=== PATIENT | female | born 1955 | race Caucasian/White ===

== ENCOUNTER 2022-07-06 17:50 | Emergency (ER) | payer OTHER ==
[~2022-07-06] VITALS: Ht 157.5 cm; Wt 53.1 kg
[2022-07-06 19:22] LABS: Source, Urine Clean Catch
[2022-07-06 19:31] LABS: Appearance, Urine Clear (Clear); Bilirubin, Urine Neg (Neg); Blood, Urine 1+ (Neg); Color, Urine Yellow (P-Yellow); Glucose Qualitative, Urine Neg (Neg); Ketones, Urine Neg (Neg); Leukocyte Esterase, Urine Neg (Neg); Nitrite, Urine Neg (Neg); Protein, Urine Neg (Neg); Specific Gravity, Urine 1.005 (1.003-1.022); Urobilinogen, Urine NORM (Normal)
[2022-07-06 19:44] LABS: Red Blood Cells, Urine 0-2 /hpf (0-2); White Blood Cells, Urine 0-2 /hpf (0-5)
[2022-07-06 19:45] LABS: Bacteria Rare /hpf; Squamous Epithelial Cells Rare /hpf (Few)
== END 2022-07-06 20:31 | disposition left against medical advice (07) ==
LOC: ER 17:50
PROVIDERS: Student in an Organized Health Care Education/Training Program
DX: F41.9 Anxiety disorder, unspecified (principal); Z53.21 Procedure and treatment not carried out due to patient leaving prior to being seen by health care provider
CPT/HCPCS: 81001; 93005; 93010

== ENCOUNTER → 2022-10-12 | Outpatient (CLI) | payer MEDICARE, OTHER | LOC: LAB 19:37 → LAB SHORT 19:37 | DX: N39.0 Urinary tract infection, site not specified (principal) | CPT/HCPCS: 87086 ==

== ENCOUNTER 2022-11-12 13:55 | Emergency (ER) | payer MEDICARE, OTHER ==
[~2022-11-12] VITALS: Ht 157.5 cm; Wt 54.4 kg
[~2022-11-12 13:55] MED LIST: Atarax10 MG PO; CARB200 PO; CYMBALTA20 M2 PO; Cyclobenzaprine5 MG PO; GABA300 PO; Imitrex100 MG PO; LEVOTHYROXINE100 M10 PO; SUBOXONE 8 MG-1 EACH SL
[2022-11-12 15:40] VITALS: BP 137/75
== END 2022-11-12 15:41 | disposition home or self-care (01) ==
LOC: ER 13:55
DX: S90.811D Abrasion, right foot, subsequent encounter (principal); Z47.89 Encounter for other orthopedic aftercare; F17.200 Nicotine dependence, unspecified, uncomplicated; Z88.8 Allergy status to other drugs, medicaments and biological substances; X58.XXXD Exposure to other specified factors, subsequent encounter
CPT/HCPCS: 29705; 99282-25

== ENCOUNTER 2024-01-05 17:10 | Emergency (ER) | payer MEDICARE, OTHER ==
[~2024-01-05] VITALS: Ht 157.5 cm; Wt 59.0 kg
[~2024-01-05 17:10] MED LIST changes: +Percocet 5-3251 EACH PO
[2024-01-05 17:24] VITALS: BP 117/83
[2024-01-05] MEDS ORDERED: Ibuprofen 600 MG Tab PO ONE (17:30)
[2024-01-05] MEDS ORDERED: SUMAtriptan succinate 50 MG Tab PO ONE (18:30)
== END 2024-01-05 18:45 | disposition home or self-care (01) ==
LOC: ER 17:10
DX: S90.32XA Contusion of left foot, initial encounter (principal); W18.2XXA Fall in (into) shower or empty bathtub, initial encounter; Z88.8 Allergy status to other drugs, medicaments and biological substances; Z79.899 Other long term (current) drug therapy; I50.9 Heart failure, unspecified; G43.909 Migraine, unspecified, not intractable, without status migrainosus; E03.9 Hypothyroidism, unspecified
CPT/HCPCS: 73630; 99283-25; A9270

== ENCOUNTER 2024-07-06 00:55 | Inpatient (IN) | payer MEDICARE, OTHER ==
[~2024-07-06] VITALS: Ht 157.5 cm; Wt 64.1 kg
[2024-07-06] MEDS ORDERED: NS 1,000 ML IV SCH ×2 (01:30→04:00)
[2024-07-06] MEDS ORDERED: Acetaminophen 500 MG Tab PO ONE (01:30)
[2024-07-06] MEDS ORDERED: Famotidine 20 MG Tab PO ONE (01:30)
[2024-07-06 01:34] LABS: CORONAVIRUS COVID-19 AG Negative (NEGATIVE); INFLUENZA A AG Positive (NEGATIVE); INFLUENZA B AG Negative (NEGATIVE)
[2024-07-06 01:41] LABS: BASOPHILS ABSOLUTE AUTO 0.01 K/mm3 (0.00-0.23); BASOPHILS PERCENT AUTO 0 % (0-2); EOSINOPHILS PERCENT AUTO 0 % (0-6); Hematocrit 46.9 % (33.0-51.0); IMMATURE GRAN ABSOLUTE AUTO 0.01 K/mm3 (0.00-0.10); IMMATURE GRAN PERCENT AUTO 0 % (0-1); LYMPHOCYTES ABSOLUTE AUTO 0.58 K/mm3 (0.84-5.20); LYMPHOCYTES PERCENT AUTO 19 % (21-46); MONOCYTES ABSOLUTE AUTO 0.42 K/mm3 (0.16-1.47); MONOCYTES PERCENT AUTO 14 % (4-13); Mean Corpuscular HGB 32.5 pg (26.0-34.0); Mean Corpuscular HGB Conc 34.1 g/dL (31.5-36.5); Mean Corpuscular Volume 95 fL (80-100); Mean Platelet Volume 10.7 fL (9.1-12.4); NEUTROPHILS ABSOLUTE AUTO 2.02 K/mm3 (1.96-9.15); NEUTROPHILS PERCENT AUTO 67 % (41-73); Platelet Count 80 K/mm3 (150-400); RDW Coefficient Variation 11.7 % (11.7-14.2); Red Blood Cell Count 4.93 M/mm3 (3.80-5.20); White Blood Cell Count 3.04 K/mm3 (4.00-11.30)
[2024-07-06 01:50] LABS: Albumin, Blood 3.7 g/dL (3.4-5.0); Albumin/Globulin Ratio 0.9 (0.8-1.8); Bilirubin, Total 0.5 mg/dL (0.1-1.0); Bun/Creatinine Ratio 18.3 (12.0-20.0); Creatinine, Blood 0.6 mg/dL (0.40-1.00); Globulin, Blood 3.9 g/dL (2.2-4.0); Magnesium, Blood 1.9 mg/dL (1.6-2.4); Potassium, Blood 3.4 mmol/L (3.5-5.5); Total Protein, Blood 7.6 g/dL (6.4-8.2)
[2024-07-06] MEDS ORDERED: Oseltamivir Phosphate 75 MG Cap PO ONE (01:50)
[2024-07-06] MEDS ORDERED: Zolpidem Tartrate 5 MG Tab PO PRN (03:10)
[2024-07-06] MEDS ORDERED: FLU VACC TS2024-25(6MOS UP)/PF 45 MCG/0.5 ML SYRINGE IM ONE (03:10)
[2024-07-06] MEDS ORDERED: Ondansetron 4 MG TAB PO PRN (03:10)
[2024-07-06] MEDS ORDERED: SUMAtriptan succinate 50 MG Tab PO PRN (03:15)
[2024-07-06] MEDS ORDERED: Cyclobenzaprine HCl 10 MG Tab PO PRN (03:15)
[2024-07-06] MEDS ORDERED: HyDROXyzine HCl 10 MG Tab PO PRN (03:15)
[2024-07-06] MEDS ORDERED: OxyCODONE 5 mg/Acetamin 325 mg TABLET PO PRN (03:20)
[2024-07-06 03:24] LABS: Source, Urine Clean Catch
[2024-07-06 03:45] LABS: Bilirubin, Urine Neg (Neg); Blood, Urine Neg (Neg); Glucose Qualitative, Urine Neg (Neg); Ketones, Urine 1+ (Neg); Leukocyte Esterase, Urine Neg (Neg); Nitrite, Urine Neg (Neg); Protein, Urine 1+ (Neg); Specific Gravity, Urine 1.015 (1.003-1.022); Urobilinogen, Urine 2+ (Normal); pH, Urine 6.5 (5.0-8.0)
[2024-07-06 03:52] LABS: IMMATURE RETIC FRACTION 4.2 % (2.3-16.0); RETICULOCYTE ABSOLUTE 0.0497 M/mm3 (0.0200-0.1100); RETICULOCYTE COUNT PERCENT 1.02 % (0.50-2.50)
[2024-07-06] MEDS ORDERED: Oseltamivir Phosphate 75 MG Cap PO SCH (04:00)
[2024-07-06] MEDS ORDERED: Potassium Chloride 20 MEQ in NS 90 ML IV ONE (04:15)
[2024-07-06 04:17] LABS: Appearance, Urine Hazy (Clear); Color, Urine Yellow (P-Yellow)
[2024-07-06 04:18] LABS: Bacteria Few /hpf; Red Blood Cells, Urine 0-2 /hpf (0-2); Squamous Epithelial Cells Many /hpf (Few); White Blood Cells, Urine 0-2 /hpf (0-5)
[2024-07-06 04:19] LABS: Granular Casts 0-2 /lpf (0)
[2024-07-06 04:44] LABS: Total Iron Binding Capacity 257 ug/dL (250-450)
[2024-07-06] MEDS ORDERED: Levothyroxine Sodium 0.1 MG Tab PO SCH (06:00)
[2024-07-06 06:20] LABS: BASOPHILS ABSOLUTE AUTO 0.01 K/mm3 (0.00-0.23); BASOPHILS PERCENT AUTO 0 % (0-2); EOSINOPHILS PERCENT AUTO 0 % (0-6); Hematocrit 41.5 % (33.0-51.0); Hemoglobin 14.1 g/dL (11.5-16.0); IMMATURE GRAN ABSOLUTE AUTO 0.01 K/mm3 (0.00-0.10); IMMATURE GRAN PERCENT AUTO 0 % (0-1); LYMPHOCYTES PERCENT AUTO 15 % (21-46); MONOCYTES ABSOLUTE AUTO 0.25 K/mm3 (0.16-1.47); MONOCYTES PERCENT AUTO 9 % (4-13); Mean Corpuscular HGB 32.9 pg (26.0-34.0); Mean Corpuscular Volume 97 fL (80-100); Mean Platelet Volume 10.5 fL (9.1-12.4); NEUTROPHILS ABSOLUTE AUTO 2.02 K/mm3 (1.96-9.15); NEUTROPHILS PERCENT AUTO 75 % (41-73); Platelet Count 69 K/mm3 (150-400); RDW Coefficient Variation 11.9 % (11.7-14.2); Red Blood Cell Count 4.28 M/mm3 (3.80-5.20); White Blood Cell Count 2.69 K/mm3 (4.00-11.30)
[2024-07-06 06:51] LABS: Albumin, Blood 2.9 g/dL (3.4-5.0); Albumin/Globulin Ratio 0.9 (0.8-1.8); Bilirubin, Total 0.4 mg/dL (0.1-1.0); Bun/Creatinine Ratio 21.1 (12.0-20.0); Creatinine, Blood 0.47 mg/dL (0.40-1.00); Globulin, Blood 3.3 g/dL (2.2-4.0); Potassium, Blood 4.2 mmol/L (3.5-5.5); Total Protein, Blood 6.2 g/dL (6.4-8.2)
[2024-07-06] MEDS ORDERED: DULoxetine HCL 20 MG Cap DR PO SCH ×2 (09:00→09:57)
[2024-07-06] MEDS ORDERED: CarBAMazepine 200 MG Tab PO SCH ×3 (09:00→13:00)
[2024-07-06] MEDS ORDERED: Enoxaparin 40 MG/0.4 ML SYR SC SCH (09:00)
[2024-07-06] MEDS ORDERED: Buprenorphine HCL/Naloxone HCL 2-0.5MG 1 EA SL SCH (09:00)
[2024-07-06] MEDS ORDERED: Gabapentin 300 MG Cap PO SCH ×2 (09:00→09:57)
[2024-07-06 10:06] VITALS: BP 150/96
[2024-07-06] MEDS ORDERED: Heparin Sodium 5000 Units/ML 1ML MDV SC SCH (10:27)
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
[2024-07-06] MEDS ORDERED: Acetaminophen 325 MG TABLET PO PRN (13:25)
[2024-07-06 15:23] VITALS: BP 137/86
[2024-07-06 15:38] VITALS: BP 132/84
--- NOTE | 2024-07-06 16:09 | NUR ---
SHIFT SUMMARY NO ACUTE EVENTS SINCE TRANSFER TO UNIT NOTE. PATIENT SLEPT OR RESTED QUIETLY THROUGHOUT DAY, EASILY AROUSABLE WITH VERBAL STIMULI. REMAINS ALERT AND ORIENTED X4. VSS. SBP 130s-150s. MAP >65. TELEMETRY SHOWING SINUS JANNETH 50s-60s PER SLICE CUTTING MACHINE OPERATOR - NO EVENTS REPORTED. REMAINS ON ROOM AIR, SATs >90%. OCCASIONAL CONGESTED NONPRODUCTIVE COUGH. PUREWICK REMAINS IN PLACE - DRAINING YELLOW URINE TO GRAVITY. TOLERATING PO INTAKE - NO N/V. IVF INFUSING PER EMAR. REPORTING CHRONIC NEUROPATHY PAIN TO BLE - MANAGING PER EMAR WITH SCHEDULED GABAPENTIN AND TYLENOL. CALL LIGHT IN REACH.
--- NOTE | 2024-07-06 16:33 | NUR ---
REPORT GIVEN TO LAW RAMON TO ASSUME CARE AT THIS TIME
--- NOTE | 2024-07-06 18:29 | NUR ---
ASSUMPTION OF CARE ASSUMED CARE OF THIS PATIENT WHEN PRIMARY RN WENT HOME, PT RESTING IN BED, NO NEEDS AT THIS TIME. CALL LIGHT IN REACH.
[2024-07-06 19:32] VITALS: BP 148/88
[2024-07-06] MEDS ORDERED: Oseltamvir Phosphate 30 MG Cap PO SCH (21:00)
[2024-07-07] VITALS (7 sets, daily range): BP systolic 114–168; BP diastolic 83–93
[2024-07-07] MEDS ORDERED: Ibuprofen 400 MG Tab PO PRN ×2 (01:15→13:05)
--- NOTE | 2024-07-07 04:40 | NUR ---
NOC SUMMARY- PT HAS RESTED COMFORTABLY THROUGHOUT SHIFT. PT VOIDING VIA PW DEVICE. PT TURNS SELF IN BED. PT DRINKING PO FLUIDS. PT ON ROOM AIR. DENIES SOB. PT REPORTING SOME BODY ACHES. PT REQUESTED IBUPROFEN. PROVIDER CALLED AND OREDERED IBUPROFEN. PT REPORTS RELEIF. PT CURRENTLY SLEEPING IN NO DISTRESS. CALL LIGHT IN REACH.
[2024-07-07 05:13] LABS: BASOPHILS ABSOLUTE AUTO 0.01 K/mm3 (0.00-0.23); BASOPHILS PERCENT AUTO 1 % (0-2); EOSINOPHILS PERCENT AUTO 0 % (0-6); Hemoglobin 13.7 g/dL (11.5-16.0); IMMATURE GRAN ABSOLUTE AUTO 0.01 K/mm3 (0.00-0.10); IMMATURE GRAN PERCENT AUTO 1 % (0-1); LYMPHOCYTES ABSOLUTE AUTO 1.08 K/mm3 (0.84-5.20); LYMPHOCYTES PERCENT AUTO 52 % (21-46); MONOCYTES ABSOLUTE AUTO 0.24 K/mm3 (0.16-1.47); MONOCYTES PERCENT AUTO 12 % (4-13); Mean Corpuscular HGB 32.5 pg (26.0-34.0); Mean Corpuscular HGB Conc 33.4 g/dL (31.5-36.5); Mean Corpuscular Volume 97 fL (80-100); Mean Platelet Volume 10.2 fL (9.1-12.4); NEUTROPHILS ABSOLUTE AUTO 0.72 K/mm3 (1.96-9.15); NEUTROPHILS PERCENT AUTO 35 % (41-73); Platelet Count 77 K/mm3 (150-400); RDW Coefficient Variation 11.7 % (11.7-14.2); RDW Standard Deviation 42.2 fL (35.1-46.3); Red Blood Cell Count 4.22 M/mm3 (3.80-5.20); White Blood Cell Count 2.06 K/mm3 (4.00-11.30)
[2024-07-07 05:36] LABS: Bun/Creatinine Ratio 8.5 (12.0-20.0); Creatinine, Blood 0.47 mg/dL (0.40-1.00); Potassium, Blood 3.2 mmol/L (3.5-5.5)
[2024-07-07] MEDS ORDERED: Potassium Chloride 20 MEQ TabCR PO ONE (11:00)
[2024-07-07] MEDS ORDERED: Bisacodyl 10 MG Supp PR PRN (14:00)
--- NOTE | 2024-07-07 18:14 | NUR ---
summary NO ACUTE CHANGES T/O SHIFT. PT REPOSITIONED SELF IN BED T/O DAY. ATTENDS CHANGED NEEDED AND PUREWICK IN PLACE. SISTER BROUGHT IN DENTURES, PT ADVANCED TO REGULAR DIET. CALL LIGHT IN REACH.
--- NOTE | 2024-07-07 20:30 | NUR ---
RECEIVED REPORT FROM YENNY KATZ. ASSUMED CARE OF PATIENT AT 2026. PT A&O X4. MAKES NEEDS KNOWN. DENIES PAIN. ORIENTED TO ROOM AND CALL SYSTEM. BED IN LOWEST POSITION. CALL LIGHT IN REACH.
--- NOTE | 2024-07-07 20:39 | NUR ---
2030- report called to sepideh . pt transported to rm [id number] without issue. pt sister dylan called and informed of pt move.
[2024-07-08] MEDS ORDERED: HYDROmorphone HCl/Pf 1MG SYR IV ONE (03:25)
--- NOTE | 2024-07-08 03:25 | NUR ---
PT MEDICATED WITH MOTRIN 200MG AT 2235 WELL IMITREX AT 0235 PER EMAR ORDERS; NOT EFFECTIVE FOR HEADACHE. DISCUSSED WITH DR. DORAN. NEW ORDER FOR DILAUDED 1MG IV NOW.
[2024-07-08 03:50] VITALS: BP 164/99
--- NOTE | 2024-07-08 06:11 | NUR ---
SPREAD CUTTER SUMMARY: PT A&O X4, MAKES NEEDS KNOWN. MEDICATED WITH MOTRIN AND IMITREX FOR H/A; NOT EFFECTIVE. NEW ORDER OBTAINED FOR DILAUDED 1MG IV NOW; EFFECTIVE. PT SLEEPING SOUNDLY SINCE ADMINISTRATION BY WOOD MACHINIST. PT MAINTAINING SAST ABOVE 90% ON RA. OCC PRODUCTIVE COUGH. PT INDEPENDENT WITH BED MOBILITY. PUREWICK IN PLACE DRAINING YELLOW URINE. PT TO D/C HOME TO DAY WITH SISTER. CALL LIGHT IN REACH. CARES CONTINUE ORDERED.
[2024-07-08 06:20] LABS: BASOPHILS ABSOLUTE AUTO 0.01 K/mm3 (0.00-0.23); BASOPHILS PERCENT AUTO 0 % (0-2); EOSINOPHILS PERCENT AUTO 0 % (0-6); Hematocrit 48.1 % (33.0-51.0); Hemoglobin 16.8 g/dL (11.5-16.0); IMMATURE GRAN ABSOLUTE AUTO 0.01 K/mm3 (0.00-0.10); IMMATURE GRAN PERCENT AUTO 0 % (0-1); LYMPHOCYTES ABSOLUTE AUTO 1.42 K/mm3 (0.84-5.20); LYMPHOCYTES PERCENT AUTO 50 % (21-46); MONOCYTES ABSOLUTE AUTO 0.32 K/mm3 (0.16-1.47); MONOCYTES PERCENT AUTO 11 % (4-13); Mean Corpuscular HGB 32.8 pg (26.0-34.0); Mean Corpuscular HGB Conc 34.9 g/dL (31.5-36.5); Mean Corpuscular Volume 94 fL (80-100); Mean Platelet Volume 10.2 fL (9.1-12.4); NEUTROPHILS PERCENT AUTO 39 % (41-73); Platelet Count 82 K/mm3 (150-400); RDW Coefficient Variation 11.7 % (11.7-14.2); RDW Standard Deviation 40.4 fL (35.1-46.3); Red Blood Cell Count 5.12 M/mm3 (3.80-5.20); White Blood Cell Count 2.86 K/mm3 (4.00-11.30)
[2024-07-08 07:05] LABS: Bun/Creatinine Ratio 11.9 (12.0-20.0); Calcium, Blood 8.7 mg/dL (8.5-10.1); Creatinine, Blood 0.5 mg/dL (0.40-1.00); Potassium, Blood 3.5 mmol/L (3.5-5.5)
[2024-07-08 07:56] VITALS: BP 121/85
--- NOTE | 2024-07-08 10:34 | NUR ---
MET PT IN ROOM AT 0900 TO GET PERMISSION TO PROVIDE CARE. PT GRANTED PERMISSION. AT THAT TIME I HAD HER MEDICATIONS AND ADMINISTERED THEM TO HER. SHE WAS ABLE TO SWALLOW HER PILLS WHOLE WITH WATER WITH NO ISSUES. I ADMINISTERED HEPARIN TO HER RIGHT LOWER ABDOMEN. WITH THE HELP OF INSTRUCTOR NURSE CIERRA WE REPOSITIONED THE PATIENT TO MAKE SURE SHE WAS COMFORTABLE. CALL LIGHT WITHIN REACH.
[2024-07-08 15:37] VITALS: BP 118/86
[2024-07-08] MEDS ORDERED: Melatonin 5 MG Tablet PO PRN (17:05)
[2024-07-08] MEDS ORDERED: OxyCODONE 5 mg/Acetamin 325 mg TABLET PO PRN (17:05)
[2024-07-08] MEDS ORDERED: Ondansetron HCl 2 MG / ML 2ML Vial IV PRN (17:05)
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
[2024-07-08 19:40] VITALS: BP 143/97
[2024-07-08] MEDS ORDERED: Ketorolac Tromethamine 15mg Vial IV PRN (22:10)
[2024-07-08 23:26] VITALS: BP 156/93
[2024-07-09 03:48] VITALS: BP 120/73
--- NOTE | 2024-07-09 06:28 | NUR ---
SHIFT SUMMARY PT ALERT AND ORIENTED TIMES 1. PT ADMITTED FOR INFLUENZA TYPE A.. PT IS ON ROOM AIR, TELE WITH SINUS RHYTHM 65. PT HAS PUREWICK, URINE IS DARK IN COLOR.. ORDER OBTAINED FOR TORDAL BY HUMAN RESOURCES HR GENERALIST. PT GIVEN PAIN MEDICATION FOR MIGRAIN HEADACHES.. BED IN LOW POSITION, CALL LIGHT WITHIN REACH, RAILS TIMES 2.
[2024-07-09 08:18] VITALS: BP 94/78
[2024-07-09 10:07] LABS: BASOPHILS ABSOLUTE AUTO 0.01 K/mm3 (0.00-0.23); BASOPHILS PERCENT AUTO 0 % (0-2); EOSINOPHILS ABSOLUTE AUTO 0.02 K/mm3 (0.00-0.68); EOSINOPHILS PERCENT AUTO 1 % (0-6); Hematocrit 40.3 % (33.0-51.0); Hemoglobin 14.1 g/dL (11.5-16.0); Mean Corpuscular HGB 32.9 pg (26.0-34.0); Mean Corpuscular Volume 94 fL (80-100); Platelet Count 82 K/mm3 (150-400); RDW Coefficient Variation 11.9 % (11.7-14.2); Red Blood Cell Count 4.29 M/mm3 (3.80-5.20); White Blood Cell Count 2.61 K/mm3 (4.00-11.30)
[2024-07-09 10:11] LABS: IMMATURE GRAN ABSOLUTE AUTO 0.01 K/mm3 (0.00-0.10); IMMATURE GRAN PERCENT AUTO 0 % (0-1); LYMPHOCYTES ABSOLUTE AUTO 1.44 K/mm3 (0.84-5.20); LYMPHOCYTES PERCENT AUTO 55 % (21-46); MONOCYTES ABSOLUTE AUTO 0.34 K/mm3 (0.16-1.47); MONOCYTES PERCENT AUTO 13 % (4-13); NEUTROPHILS ABSOLUTE AUTO 0.79 K/mm3 (1.96-9.15); NEUTROPHILS PERCENT AUTO 30 % (41-73)
[2024-07-09 10:34] LABS: BAND PERCENT MAN 1 % (0-8); BASOPHILS PERCENT MAN 0 % (0-2); EOSINOPHILS PERCENT MAN 0 % (0-6); LYMPHOCYTES % ATYPICAL MANUAL 5 % (0-0); LYMPHOCYTES PERCENT MAN 45 % (21-46); METAMYELOCYTE ABSOLUTE MAN 0.02 K/mm3 (0.00-0.00); METAMYELOCYTE PERCENT MAN 1 % (0-0); MONOCYTES ABSOLUTE MAN 0.36 K/mm3 (0.16-1.47); MONOCYTES PERCENT MAN 14 % (4-13); NEUTROPHILS ABSOLUTE MAN 0.91 K/mm3 (1.96-9.15); SEG NEUTROPHILS PERCENT MAN 34 % (41-73); TOTAL CELLS COUNTED 100
[2024-07-09 10:37] LABS: Bun/Creatinine Ratio 20.3 (12.0-20.0); Calcium, Blood 8.5 mg/dL (8.5-10.1); Creatinine, Blood 0.59 mg/dL (0.40-1.00); Potassium, Blood 3.6 mmol/L (3.5-5.5)
[2024-07-09] MEDS ORDERED: SUMAtriptan succinate 50 MG Tab PO PRN (12:25)
[2024-07-09] MEDS ORDERED: Tamiflu30 MG PO (13:59)
--- NOTE | 2024-07-09 18:04 | NUR ---
SHIFT SUMMARY AND DISCHARGE PATIENT ALERT AND INTERACTIVE. PATIENT CONTINUES TO HAVE ISSUES WITH DULL HEADACHE. PATIENT MEDICATED FOR PAIN PER JUL. DISCHARGE INSTRUCTIONS REVIEWED WITH SISTER AND PATIENT. O2 DELIVERED TO ROOM FOR DISCHARGE. PATIENT ASSISTED WITH DRESSING AND GETTING UP TO HER WHEELCHAIR. IV DC'D, BELONGINGS SENT HOME WITH PATIENT. SISTER TOOK PATIENT OUT IN HER OWN WHEELCHAIR.
== END 2024-07-09 16:12 | disposition home health service (06) | DRG 193 ==
LOC: ER 00:55 → SURS 02:35 → ERHOLD 02:35 → SURS 09:59 → MEDS 07-07 21:17 → ENPENDDIS 07-09 14:17 → MEDS 07-09 16:12
PROVIDERS: Family Medicine; Internal Medicine; Student in an Organized Health Care Education/Training Program; ADMIT Internal Medicine
DX: J10.1 Influenza due to other identified influenza virus with other respiratory manifestations (principal); J96.01 Acute respiratory failure with hypoxia; E87.1 Hypo-osmolality and hyponatremia; E03.9 Hypothyroidism, unspecified; G43.909 Migraine, unspecified, not intractable, without status migrainosus; G62.9 Polyneuropathy, unspecified; J44.9 Chronic obstructive pulmonary disease, unspecified; I50.9 Heart failure, unspecified; F17.290 Nicotine dependence, other tobacco product, uncomplicated; E87.6 Hypokalemia; D69.6 Thrombocytopenia, unspecified; D72.810 Lymphocytopenia; D72.819 Decreased white blood cell count, unspecified; M54.50 Low back pain, unspecified; R74.01 Elevation of levels of liver transaminase levels; F41.9 Anxiety disorder, unspecified; G47.00 Insomnia, unspecified; G89.29 Other chronic pain; Z99.81 Dependence on supplemental oxygen; Z87.81 Personal history of (healed) traumatic fracture; I69.334 Monoplegia of upper limb following cerebral infarction affecting left non-dominant side; Z88.8 Allergy status to other drugs, medicaments and biological substances; Z79.899 Other long term (current) drug therapy; Z79.890 Hormone replacement therapy; Z79.891 Long term (current) use of opiate analgesic
CPT/HCPCS: 36415; 71046; 80048; 80053; 81001; 83540; 83550; 83690; 83735; 84145; 84484; 85025; 85045; 87428-QW; 92610; 93005; 93010; 94760; 94761; 99285-25; A9270; J1171; J1644; J1885; J2405; J3480; J7030

== ENCOUNTER → 2024-08-05 | Outpatient (CLI) | payer MEDICARE, OTHER ==
[~2024-08-05] MED LIST changes: +Tamiflu30 MG PO
== END | disposition home or self-care (01) ==
LOC: LAB SHORT 16:37 → LAB 16:37
DX: N39.0 Urinary tract infection, site not specified (principal)
CPT/HCPCS: 87077; 87086; 87186

== ENCOUNTER 2024-08-08 19:26 | Emergency (ER) | payer MEDICARE, OTHER ==
[~2024-08-08] VITALS: Ht 157.5 cm; Wt 64.4 kg
[2024-08-08 19:51] LABS: BASOPHILS ABSOLUTE AUTO 0.05 K/mm3 (0.00-0.23); BASOPHILS PERCENT AUTO 1 % (0-2); EOSINOPHILS ABSOLUTE AUTO 0.13 K/mm3 (0.00-0.68); EOSINOPHILS PERCENT AUTO 3 % (0-6); Hematocrit 40.9 % (33.0-51.0); Hemoglobin 13.6 g/dL (11.5-16.0); IMMATURE GRAN ABSOLUTE AUTO 0.01 K/mm3 (0.00-0.10); IMMATURE GRAN PERCENT AUTO 0 % (0-1); LYMPHOCYTES ABSOLUTE AUTO 1.65 K/mm3 (0.84-5.20); LYMPHOCYTES PERCENT AUTO 37 % (21-46); MONOCYTES ABSOLUTE AUTO 0.46 K/mm3 (0.16-1.47); MONOCYTES PERCENT AUTO 10 % (4-13); Mean Corpuscular HGB 33.3 pg (26.0-34.0); Mean Corpuscular HGB Conc 33.3 g/dL (31.5-36.5); Mean Corpuscular Volume 100 fL (80-100); Mean Platelet Volume 9.6 fL (9.1-12.4); NEUTROPHILS ABSOLUTE AUTO 2.18 K/mm3 (1.96-9.15); NEUTROPHILS PERCENT AUTO 49 % (41-73); Platelet Count 165 K/mm3 (150-400); RDW Coefficient Variation 12.6 % (11.7-14.2); RDW Standard Deviation 46.7 fL (35.1-46.3); Red Blood Cell Count 4.09 M/mm3 (3.80-5.20); White Blood Cell Count 4.48 K/mm3 (4.00-11.30)
[2024-08-08 20:09] LABS: Albumin, Blood 3.4 g/dL (3.4-5.0); Albumin/Globulin Ratio 1.1 (0.8-1.8); Bilirubin, Total 0.5 mg/dL (0.1-1.0); Bun/Creatinine Ratio 12.8 (12.0-20.0); Calcium, Blood 8.7 mg/dL (8.5-10.1); Creatinine, Blood 0.86 mg/dL (0.40-1.00); Globulin, Blood 3.2 g/dL (2.2-4.0); Potassium, Blood 3.3 mmol/L (3.5-5.5); Total Protein, Blood 6.6 g/dL (6.4-8.2)
[2024-08-08] MEDS ORDERED: Potassium Chloride 10 Meq Tablet SA PO ONE (21:15)
[2024-08-08 21:35] VITALS: BP 95/64
== END 2024-08-08 21:42 | disposition home or self-care (01) ==
LOC: ER 19:26
PROVIDERS: Student in an Organized Health Care Education/Training Program
DX: R55 Syncope and collapse (principal); E87.6 Hypokalemia; E03.9 Hypothyroidism, unspecified; G43.909 Migraine, unspecified, not intractable, without status migrainosus; Z79.899 Other long term (current) drug therapy; Z88.8 Allergy status to other drugs, medicaments and biological substances
CPT/HCPCS: 80053; 85025; 93005; 93010; 99285; A9270

== ENCOUNTER 2024-09-09 17:32 | Emergency (ER) | payer MEDICARE, OTHER ==
[~2024-09-09] VITALS: Ht 157.5 cm; Wt 63.5 kg
[2024-09-09 19:26] LABS: BASOPHILS ABSOLUTE AUTO 0.04 K/mm3 (0.00-0.23); BASOPHILS PERCENT AUTO 1 % (0-2); EOSINOPHILS ABSOLUTE AUTO 0.34 K/mm3 (0.00-0.68); EOSINOPHILS PERCENT AUTO 7 % (0-6); Hematocrit 43.3 % (33.0-51.0); Hemoglobin 14.7 g/dL (11.5-16.0); IMMATURE GRAN ABSOLUTE AUTO 0.01 K/mm3 (0.00-0.10); IMMATURE GRAN PERCENT AUTO 0 % (0-1); LYMPHOCYTES ABSOLUTE AUTO 1.13 K/mm3 (0.84-5.20); LYMPHOCYTES PERCENT AUTO 24 % (21-46); MONOCYTES ABSOLUTE AUTO 0.37 K/mm3 (0.16-1.47); MONOCYTES PERCENT AUTO 8 % (4-13); Mean Corpuscular HGB 33.3 pg (26.0-34.0); Mean Corpuscular HGB Conc 33.9 g/dL (31.5-36.5); Mean Corpuscular Volume 98 fL (80-100); Mean Platelet Volume 9.6 fL (9.1-12.4); NEUTROPHILS ABSOLUTE AUTO 2.84 K/mm3 (1.96-9.15); NEUTROPHILS PERCENT AUTO 60 % (41-73); Platelet Count 180 K/mm3 (150-400); RDW Coefficient Variation 12.4 % (11.7-14.2); RDW Standard Deviation 44.9 fL (35.1-46.3); Red Blood Cell Count 4.42 M/mm3 (3.80-5.20); White Blood Cell Count 4.73 K/mm3 (4.00-11.30)
[2024-09-09] MEDS ORDERED: NS 1,000 ML IV SCH (19:45)
[2024-09-09] MEDS ORDERED: Lidocaine 4% 1 Patch TOP ONE (19:45)
[2024-09-09] MEDS ORDERED: Ketorolac Tromethamine 30mg Vial IV ONE (19:45)
[2024-09-09 19:57] LABS: Albumin, Blood 3.5 g/dL (3.4-5.0); Bilirubin, Total 0.4 mg/dL (0.1-1.0); Bun/Creatinine Ratio 16.6 (12.0-20.0); Calcium, Blood 8.9 mg/dL (8.5-10.1); Creatinine, Blood 0.73 mg/dL (0.40-1.00); Globulin, Blood 3.6 g/dL (2.2-4.0); Potassium, Blood 3.9 mmol/L (3.5-5.5); Total Protein, Blood 7.1 g/dL (6.4-8.2)
[2024-09-09] MEDS ORDERED: Propofol 10mg/ml 20 ml Vial (Procedural) IV SCH (20:00)
[2024-09-09 21:27] VITALS: BP 115/97
== END 2024-09-09 21:33 | disposition home or self-care (01) ==
LOC: ER 17:32
PROVIDERS: Emergency Medicine
DX: R55 Syncope and collapse (principal); S20.212A Contusion of left front wall of thorax, initial encounter; I50.9 Heart failure, unspecified; E03.9 Hypothyroidism, unspecified; X58.XXXA Exposure to other specified factors, initial encounter; Z88.8 Allergy status to other drugs, medicaments and biological substances; Z79.890 Hormone replacement therapy
CPT/HCPCS: 71101; 80053; 83735; 83880; 84484; 85025; 93005; 93010; 96374; 99284-25; A9270; J1885; J7030

== ENCOUNTER 2025-01-15 22:13 | Emergency (ER) | payer MEDICARE, OTHER ==
[~2025-01-15] VITALS: Ht 162.6 cm; Wt 74.8 kg
[2025-01-16 00:17] LABS: BASOPHILS ABSOLUTE AUTO 0.03 K/mm3 (0.00-0.23); BASOPHILS PERCENT AUTO 0 % (0-2); EOSINOPHILS ABSOLUTE AUTO 0.07 K/mm3 (0.00-0.68); EOSINOPHILS PERCENT AUTO 1 % (0-6); Hematocrit 42.6 % (33.0-51.0); Hemoglobin 14.4 g/dL (11.5-16.0); IMMATURE GRAN ABSOLUTE AUTO 0.02 K/mm3 (0.00-0.10); IMMATURE GRAN PERCENT AUTO 0 % (0-1); LYMPHOCYTES ABSOLUTE AUTO 1.77 K/mm3 (0.84-5.20); LYMPHOCYTES PERCENT AUTO 20 % (21-46); MONOCYTES ABSOLUTE AUTO 0.89 K/mm3 (0.16-1.47); MONOCYTES PERCENT AUTO 10 % (4-13); Mean Corpuscular HGB Conc 33.8 g/dL (31.5-36.5); Mean Corpuscular Volume 100 fL (80-100); NEUTROPHILS ABSOLUTE AUTO 6.00 K/mm3 (1.96-9.15); NEUTROPHILS PERCENT AUTO 68 % (41-73); NRBC ABSOLUTE 0.00 K/mm3 (0.00-0.02); NRBC Auto 0.0 /100 WBC (0.0-0.2); Platelet Count 144 K/mm3 (150-400); RDW Coefficient Variation 12.5 % (11.7-14.2); RDW Standard Deviation 45.8 fL (35.1-46.3)
[2025-01-16 00:35] LABS: Alanine Aminotransfer (ALT/SGP 30.0 U/L (12-78); Albumin, Blood 3.5 g/dL (3.4-5.0); Albumin/Globulin Ratio 1.0 (0.8-1.8); Anion Gap 8.0 mmol/L (3-11); Aspartate Aminotrans (AST/SGOT 40.0 U/L (12-37); Bilirubin, Total 0.9 mg/dL (0.1-1.0); Blood Urea Nitrogen 18.0 mg/dL (8-24); CO2, Blood 24.0 mmol/L (21-32); Calcium, Blood 8.0 mg/dL (8.5-10.1); Chloride, Blood 103.0 mmol/L (98-108); Creatinine, Blood 0.68 mg/dL (0.40-1.00); Globulin, Blood 3.5 g/dL (2.2-4.0); Glucose, Blood 114.0 mg/dL (70-99); Potassium, Blood 4.4 mmol/L (3.5-5.5); Sodium, Blood 131.0 mmol/L (136-145); Total Protein, Blood 7.0 g/dL (6.4-8.2)
[2025-01-16 01:40] LABS: Thyroid Stimulating Hormone 2.15 uIU/mL (0.360-4.800)
[2025-01-16 01:43] LABS: pH Blood Venous 7.43 (7.34-7.37)
[2025-01-16] MEDS ORDERED: AZIT250 PO (01:57)
[2025-01-16 02:10] VITALS: BP 112/76
== END 2025-01-16 02:30 | disposition home or self-care (01) ==
LOC: ER 22:13
PROVIDERS: Emergency Medicine
DX: J18.9 Pneumonia, unspecified organism (principal); F41.9 Anxiety disorder, unspecified; E03.9 Hypothyroidism, unspecified; G43.909 Migraine, unspecified, not intractable, without status migrainosus; Z79.899 Other long term (current) drug therapy; Z88.8 Allergy status to other drugs, medicaments and biological substances
CPT/HCPCS: 71045; 80053; 82803; 84443; 85025; 93005; 93010; 99284-25; A9270